=== PATIENT | male | born 1955 | race Caucasian/White ===

== ENCOUNTER → 2017-07-16 | Outpatient (CLI) | payer BC ==
[~2017-07-16] MED LIST: LOPRESSOR 225 MG/TAB PO; NEXIUM 40MG40 MG PO
== END ==
LOC: COL.VAS 08:34
DX: I10 Essential (primary) hypertension (principal)

== ENCOUNTER → 2020-06-25 | Outpatient (CLI) | payer BC | LOC: COL.RAD 08:15 | DX: R74.8 Abnormal levels of other serum enzymes (principal); K76.89 Other specified diseases of liver; N28.89 Other specified disorders of kidney and ureter; K83.8 Other specified diseases of biliary tract ==

== ENCOUNTER 2020-12-16 14:17 | Emergency (ER) | payer BC ==
[~2020-12-16] VITALS: Ht 182.9 cm; Wt 115.9 kg
[2020-12-16 14:24] VITALS: TEMP 98.9
[2020-12-16] MEDS ORDERED: LOTREL 10 MG-201 CAP PO (15:35)
[2020-12-16] MEDS ORDERED: PROTONIX 40MG T40 MG PO (15:35)
[2020-12-16] MEDS ORDERED: ALDACTONE50 MG PO (15:37)
[2020-12-16] MEDS ORDERED: PRINIVIL40 MG PO (15:37)
[2020-12-16 15:41] LABS: HEMATOCRIT 40.5 % (42.0-52.0); HEMOGLOBIN 13.4 g/dl (13.5-18.0); MEAN CELL VOLUME 97 fl (80.0-100.0); MEAN CORPUSCULAR HEMOGLOBIN 32 pg (27.0-31.0); MEAN CORPUSCULAR HGB CONC 33 g/dl (33.0-37.0); MEAN PLATELET VOLUME 10.4 fl (7.4-10.4); PLATELET COUNT 269 K/mm3 (130-400); RED BLOOD COUNT 4.17 M/mm3 (4.20-5.60); REDCELL DISTRIBUTION WIDTH-CV 13.3 % (11.5-14.5)
[2020-12-16 15:54] LABS: CALCIUM 9.6 mg/dL (8.4-10.2); CREATININE, serum 0.86 (0.66-1.25); POTASSIUM 4.8 mmol/L (3.4-5.0)
[2020-12-16 16:07] LABS: C-REACTIVE PROTEIN 17.7 mg/dL (0.0-0.9)
[2020-12-16 16:10] LABS: ERYTHROCYTE SEDIMENTATION RATE 40 mm/hr (0-30)
[2020-12-16 16:22] LABS: BAND 1 % (0-10); LYMPHOCYTE 9 % (20.0-51.0); NEUTROPHILS 76 % (42.0-75.2); PLATELET ESTIMATE NORMAL (NORMAL)
[2020-12-16 16:32] VITALS: BP 129/73; PULSE 70
== END 2020-12-16 16:35 | disposition home or self-care (01) ==
LOC: COL.ER 14:17
PROVIDERS: Emergency Medicine
DX: M25.462 Effusion, left knee (principal); F17.200 Nicotine dependence, unspecified, uncomplicated
CPT/HCPCS: J1885; J7030

== ENCOUNTER 2020-12-18 12:38 | Emergency (ER) | payer BC ==
[~2020-12-18] VITALS: Ht 182.9 cm; Wt 115.9 kg
[~2020-12-18 12:38] MED LIST changes: +ALDACTONE50 MG PO; +LOTREL 10 MG-201 CAP PO; +PRINIVIL40 MG PO; +PROTONIX 40MG T40 MG PO
[2020-12-18 12:46] VITALS: BP 113/75; TEMP 97.3
[2020-12-18 13:46] LABS: HEMATOCRIT 39.9 % (42.0-52.0); HEMOGLOBIN 13.1 g/dl (13.5-18.0); MEAN CELL VOLUME 98 fl (80.0-100.0); MEAN CORPUSCULAR HEMOGLOBIN 32 pg (27.0-31.0); MEAN CORPUSCULAR HGB CONC 33 g/dl (33.0-37.0); MEAN PLATELET VOLUME 10.1 fl (7.4-10.4); PLATELET COUNT 331 K/mm3 (130-400); RED BLOOD COUNT 4.08 M/mm3 (4.20-5.60); REDCELL DISTRIBUTION WIDTH-CV 13.2 % (11.5-14.5)
[2020-12-18 13:58] LABS: ALBUMIN 3.6 gm/dL (3.5-5.0); BILIRUBIN,TOTAL 0.9 mg/dL (0.0-1.0); CALCIUM 9.5 mg/dL (8.4-10.2); CREATININE, serum 0.74 (0.66-1.25); POTASSIUM 4.7 mmol/L (3.4-5.0); TOTAL PROTEIN 6.8 gm/dL (6.4-8.2)
[2020-12-18 14:09] LABS: C-REACTIVE PROTEIN 20.5 mg/dL (0.0-0.9)
[2020-12-18 14:22] LABS: BAND 1 % (0-10); LYMPHOCYTE 9 % (20.0-51.0); NEUTROPHILS 80 % (42.0-75.2)
[2020-12-18 14:23] LABS: HYPOCHROMIA 1+; PLATELET ESTIMATE NORMAL (NORMAL); STOMATOCYTE 1+
[2020-12-18 14:28] LABS: SYNOVIAL FLUID APPEARANCE TURBID; SYNOVIAL FLUID COLOR AMBER
[2020-12-18 14:30] LABS: SYNOVIAL FLUID WBC 23364 /mm3 (200-600)
[2020-12-18 14:31] LABS: SYNOVIAL FL. MONONUCLEAR 7.3 % (0-75); SYNOVIAL FLUID RBC 28000 /mm3 (0-0)
[2020-12-18] MEDS ORDERED: NORCO 325 MG-51 TAB PO (15:29)
[2020-12-18 16:02] VITALS: PULSE 85
== END 2020-12-18 16:02 | disposition home or self-care (01) ==
LOC: COL.ER 12:38
PROVIDERS: Family Medicine
DX: M25.462 Effusion, left knee (principal); I10 Essential (primary) hypertension

== ENCOUNTER 2020-12-20 09:21 | Inpatient (IN) | payer BC ==
[2020-12-20] VITALS (12 sets, daily range): BP systolic 107–157; BP diastolic 56–83; PULSE 69–94; TEMP 97.9–99.3
[~2020-12-20] VITALS: Ht 182.9 cm; Wt 110.0 kg
[~2020-12-20 09:21] MED LIST changes: +NORCO 325 MG-51 TAB PO
[2020-12-20] MEDS ORDERED: NORVASC 10MG10 MG PO (10:51)
--- NOTE | 2020-12-20 11:10 | NUR ---
Vancomycin Initial Dosing Pharmacy Note Ordering provider: Yair Oquendo MD Indication/duration: Infected L-knee LABS: SCr 0.74, CrCl>100, GFR 106 Recommendation: Vancomycin 2 gm IV x1 loading dose, then Vancomycin 1.75 gm IV 7q12h. Pharmacy will continue to monitor and check a Vancomycin trough on 12/22/20. Loading dose: 2 grams Maintenance dose: 1.75 grams every 12 hours Trough goal: 15-20 ug/mL
[2020-12-20 11:20] LABS: BASO % 0.3 % (0.0-2.0); EOS % 0.3 % (0-4.0); GRAN # 6.8 (1.4-6.5); GRAN % 77.2 % (42.2-75.2); HEMATOCRIT 40.1 % (42.0-52.0); LYMPH # 0.7 (1.2-3.4); LYMPH % 7.4 % (20.0-51.0); MEAN CELL VOLUME 97 fl (80.0-100.0); MEAN CORPUSCULAR HEMOGLOBIN 32 pg (27.0-31.0); MEAN CORPUSCULAR HGB CONC 32 g/dl (33.0-37.0); MEAN PLATELET VOLUME 9.9 fl (7.4-10.4); MONO # 1.2 (0.1-0.6); MONO % 13.7 % (1.7-9.3); PLATELET COUNT 392 K/mm3 (130-400); RED BLOOD COUNT 4.13 M/mm3 (4.20-5.60); REDCELL DISTRIBUTION WIDTH-CV 13.2 % (11.5-14.5)
[2020-12-20 11:30] LABS: CALCIUM 9.6 mg/dL (8.4-10.2); CREATININE, serum 0.67 (0.66-1.25); MAGNESIUM 2.4 mg/dL (1.6-2.3); POTASSIUM 4.2 mmol/L (3.4-5.0)
[2020-12-20 11:42] LABS: C-REACTIVE PROTEIN 23.5 mg/dL (0.0-0.9)
--- NOTE | 2020-12-20 12:00 | NUR ---
Contacted Dr. Adrian for consult.
[2020-12-20 12:50] LABS: ERYTHROCYTE SEDIMENTATION RATE 67 mm/hr (0-30)
--- NOTE | 2020-12-20 13:50 | NUR ---
Patient to OR by bed.
--- NOTE | 2020-12-20 17:27 | NUR ---
Patient called out requesting additional pain medicaion at this time. Patient unable to stay awake while staff in room. Patient on oxymask at 5L to maintain oxygen sats above 95%.
--- NOTE | 2020-12-20 18:14 | NUR ---
Patient doing well since up from OR. Alert and oriented at this time, patient eating supper. States pain to LLE 04/14, medications given at this time. Hemovac to LLE with serosanguinous drainage present. Patient has acewrap to LLE. Denies further needs at this time. Will report off to night club manager.
--- NOTE | 2020-12-20 19:30 | NUR ---
Patient assessed at this time. Alert and oriented x 4, and able to make needs known. Denies having pain and discomfort at this time. Patient had received PRN pain medication on previous shift which was effective. Double lumen PICC to RUE. NS running per orders. Site without redness, warmth, swelling, and drainage. Dressing CDI. Denies having SOB and dyspnea. LS CTA. Respirations even and unlabored. On oxygen at 3 L/min via NC. HRR. Telemetry in place: normal sinus. Capillary refill less than 3 seconds. Non-tenting skin turgor. BSAx4. Abdomen soft and non-tender. 2+ edema LLE. Hemovac drain to left knee with bloody output. Dressing to LLE in place: WILMER wrap to LLE. Did not remove dressing. Pedal pulses present and equal bilaterally. High fall risk precautions in place. Voices no questions, needs, or concerns at this time. Resting in bed with call light within reach.
[2020-12-21 03:54] VITALS: BP 152/75; PULSE 56; TEMP 97.6
--- NOTE | 2020-12-21 06:11 | NUR ---
Patient has been resting in bed with call light within reach. Has denied having pain and discomfort this shift. Hemovac drain emptied. 90 mls of bloody drainage. Continues on compression suction at this time. Denies having pain and discomfort to left knee. Continues on antibiotics per orders. This morning, patient complaining of irritation to right eye, with some redness noted. Flushed eye with normal saline flush as reqeusted. Requested to take off oxygen. SPO2 93% on room air. Agreed to leave off for now. Voices no further questions, needs, or concerns at this time. Resting in bed with call light within reach.
[2020-12-21 07:20] VITALS: BP 112/66; PULSE 74; TEMP 98.4
--- NOTE | 2020-12-21 08:00 | NUR ---
PATIENT IS A&O. VSS WITH TELE INPLACE. DENIES PAIN. LLE DRESSING IS CD&I WITH SPLINT AND ACEWRAP. ICE PACK TO LLE. SCD'S TO RLE. BLOOD CULTURES PENDING. IV ABX INFUSING INTO RIGHT UPPER ARM PICC. HEMOVAC TO COMPRESSION WITH SMALL AMOUNTS OF DRAINAGE. HEAD TO TOE ASSESSMENT COMPLETE. WBAT TO LLE. PT CONSULTED. NO C/O N/V. TOLERATING GEN DIET WELL. AM MEDS GIVEN
[2020-12-21 08:10] LABS: BASO % 0.2 % (0.0-2.0); GRAN # 8.4 (1.4-6.5); GRAN % 82.7 % (42.2-75.2); LYMPH # 0.6 (1.2-3.4); LYMPH % 5.9 % (20.0-51.0); MEAN CELL VOLUME 100 fl (80.0-100.0); MEAN CORPUSCULAR HGB CONC 32 g/dl (33.0-37.0); MEAN PLATELET VOLUME 10.1 fl (7.4-10.4); MONO % 10.2 % (1.7-9.3); PLATELET COUNT 349 K/mm3 (130-400); RED BLOOD COUNT 2.83 M/mm3 (4.20-5.60); REDCELL DISTRIBUTION WIDTH-CV 13.1 % (11.5-14.5)
[2020-12-21 08:17] LABS: HEMATOCRIT 28.3 % (42.0-52.0); HEMOGLOBIN 9.1 g/dl (13.5-18.0); MEAN CORPUSCULAR HEMOGLOBIN 32 pg (27.0-31.0)
[2020-12-21 08:29] LABS: CALCIUM 7.6 mg/dL (8.4-10.2); CREATININE, serum 0.58 (0.66-1.25); POTASSIUM 3.9 mmol/L (3.4-5.0)
[2020-12-21 11:19] VITALS: BP 123/62; PULSE 86; TEMP 98.7
--- NOTE | 2020-12-21 11:39 | NUR ---
Coal Conveyor Operator met with patient to discuss discharge planning. Patient lives alone in [place] and sees Dr. Herrera from [facility] for primary care. Patient obtains medications from [facility] with no difficulties. Patient does not normally use any DME at home but reports he does have an old walker at home and a pair of crutches. Patient is normally independent with ADLS and plans to return home upon discharge. Patient does not have DPOA-HC but was interested in completing form. SW assisted patient in completing form and patient chose to designate his son, Rosendo August (ph#[phone]) and sister in law, Lloyd August (ph#[phone]). SW provided original and copies to patient and then placed copy on chart. Patient will need six weeks of IV antibiotics upon discharge and the team is still waiting on results from cultures to determine what patient will need and how often. SW reviewed options with patient including [facility] in [place], [facility], or home IV antibiotics. Patient states he would prefer not to do antibiotics at home as he wasn't sure if he would be very consistent with it. Patient would like to [facility] up at [facility]. SW contacted Christin in [facility] to give update on patient. SW then contacted patient's sister in law, Lloyd to review discharge plan. Lloyd advised patient works in [place] and that she should be able to assist with transportation if for some reason patient is unable to drive himself at first. SW will continue to follow for final recommendations.
[2020-12-21 16:10] VITALS: BP 141/72; PULSE 88; TEMP 97.6
[2020-12-21 17:58] LABS: HEMOGLOBIN 9.1 g/dl (13.5-18.0)
[2020-12-21 17:59] LABS: HEMATOCRIT 28.3 % (42.0-52.0)
[2020-12-21 19:52] VITALS: BP 136/55; PULSE 88; TEMP 98.4
--- NOTE | 2020-12-21 20:15 | NUR ---
Patient assessed at this time. Alert and oriented x 4, and able to make needs known. Denies having pain and discomfort. Double lumen PICC to RUE. Fluids running per orders. Site without redness, warmth, swelling, and pain. Dressing CDI. Denies SOB and dyspnea. LS CTA. Respirations even and unlabored. On room air. HRR. Telemetry in place. Capillary refill less than 3 seconds. Non-tenting skin turgor. BSAx4. Abdomen soft and non-tender. 2+ edema LLE, 1+ RLE. WILMER dressing to LLE CDI. Hemovac drain to left knee to compression with bloody drainage. Patient aware that he is NPO after midnight for possible washout again tomorrow to left knee. Voices no questions, needs, or concerns at this time. Resting in bed with call light within reach.
[2020-12-22 00:25] VITALS: BP 142/65; PULSE 90; TEMP 97.7
[2020-12-22 04:18] VITALS: BP 130/68; PULSE 84; TEMP 97.6
--- NOTE | 2020-12-22 06:01 | NUR ---
Patient has been resting in bed with call light within reach. Has denied having pain and discomfort. 40 ml bloody drainage from hemovac drain to left knee emptied. Continues on compression suction. Patient has been NPO since midnight per orders. High fall risk precautions remain in place. Has been using bedside urinal.
[2020-12-22 06:32] LABS: MEAN CELL VOLUME 100 fl (80.0-100.0); MEAN CORPUSCULAR HGB CONC 32 g/dl (33.0-37.0); MEAN PLATELET VOLUME 10.1 fl (7.4-10.4); PLATELET COUNT 351 K/mm3 (130-400); RED BLOOD COUNT 3.02 M/mm3 (4.20-5.60); REDCELL DISTRIBUTION WIDTH-CV 13.1 % (11.5-14.5)
[2020-12-22 06:43] LABS: HEMATOCRIT 30.1 % (42.0-52.0); HEMOGLOBIN 9.5 g/dl (13.5-18.0); MEAN CORPUSCULAR HEMOGLOBIN 31 pg (27.0-31.0)
[2020-12-22 06:44] LABS: C-REACTIVE PROTEIN 7.9 mg/dL (0.0-0.9); CALCIUM 8.5 mg/dL (8.4-10.2); CREATININE, serum 0.65 (0.66-1.25); POTASSIUM 3.8 mmol/L (3.4-5.0)
[2020-12-22 07:00] LABS: BAND 1 % (0-10); BASOPHIL 1 % (0-2); EOSINOPHIL 1 % (0-4); HYPOCHROMIA 2+; LYMPHOCYTE 18 % (20.0-51.0); NEUTROPHILS 65 % (42.0-75.2); PLATELET ESTIMATE NORMAL (NORMAL)
[2020-12-22 07:59] VITALS: BP 167/85; PULSE 86; TEMP 97.5
--- NOTE | 2020-12-22 08:02 | NUR ---
Pt assessment complete. Pt is laying in bed upon entry, assisted the PA in removal of drain and dressing change. Ice reapplied to L knee. POC to stay another night discussed with patient. Pt able to eat breakfast this am. Encouraged to get into the recliner for breakfast. IVF infusing without complications. No needs at this time. Call light within reach.
--- NOTE | 2020-12-22 10:35 | NUR ---
Initial visit; Patient thanked Edge Stainer Machine for looking in on him and offering God's blessings.
[2020-12-22 10:59] VITALS: BP 135/70; PULSE 86; TEMP 98.6
[2020-12-22 16:00] VITALS: BP 161/80; PULSE 80; TEMP 98.1
--- NOTE | 2020-12-22 18:37 | NUR ---
Uneventful day, PRN pain medication and ice administered for knee pain. Dressing CDI, encouraged patient to ambulate and move leg.
[2020-12-22 19:59] VITALS: BP 144/74; PULSE 84; TEMP 97.6
[2020-12-23 00:37] VITALS: BP 160/85; PULSE 86; TEMP 98
[2020-12-23 04:00] VITALS: BP 163/84; PULSE 90; TEMP 97.8
--- NOTE | 2020-12-23 05:15 | NUR ---
Patient did well throughout the night. Dressing on his left knee clean, dry, and intact. Fluids infusing through PICC in right upper arm. [place] PRN for pain. He has been NPO since midnight for possible I&D today. No other needs at this time.
[2020-12-23 07:12] LABS: HEMOGLOBIN 10.1 g/dl (13.5-18.0); MEAN CELL VOLUME 99 fl (80.0-100.0); MEAN CORPUSCULAR HEMOGLOBIN 32 pg (27.0-31.0); MEAN CORPUSCULAR HGB CONC 32 g/dl (33.0-37.0); MEAN PLATELET VOLUME 10.1 fl (7.4-10.4); PLATELET COUNT 414 K/mm3 (130-400); RED BLOOD COUNT 3.19 M/mm3 (4.20-5.60); REDCELL DISTRIBUTION WIDTH-CV 13.1 % (11.5-14.5)
[2020-12-23 07:27] LABS: CREATININE, serum 0.64 (0.66-1.25); POTASSIUM 3.9 mmol/L (3.4-5.0)
[2020-12-23 07:31] LABS: HEMATOCRIT 31.7 % (42.0-52.0)
--- NOTE | 2020-12-23 08:00 | NUR ---
PATIENT IS A&O. VSS WITH TELE INPLACE. PAIN MANAGED IN LEFT KNEE. LEFT KNEE DRESSING IS CD&I WITH ICE PACK INPLACE. PATIENT IS 1 ASSIST WITH WALKER. PATIENT HOPING TO DISCHARGE HOME LATER TODAY. AWAITING ANTIBIOTIC RECOMMENDATIONS. PATIENT STILL DECIDING ON WHERE TO GET OUTPATIENT ABX. STUDENT NURSE WORKING WITH PATIENT TODAY, SEE CHARTING. NO OTHER NEEDS. CALL LIGHT IN REACH.
[2020-12-23 08:01] VITALS: BP 154/96; PULSE 81; TEMP 98
--- NOTE | 2020-12-23 09:00 | NUR ---
HOSPITALIST TEAM ROUNDING. PATIENT WILL LIKELY DISCHARGE HOME TODAY AFTER I.D. MAKES ABX RECOMMENDATIONS. SEE PHYSICIAN NOTES.
--- NOTE | 2020-12-23 09:35 | NUR ---
PATIENT'S DAUGHTER AND DPOA CALLED AND GIVEN PATIENT STATUS UPDATE. DAUGHTER CONTACT INFO ON CHART. PATIENT SITTING UP IN BED, DOING WELL, NO C/O PAIN. STUDENT NURSE AT BEDSIDE, SEE STUDENT CHARTING.
[2020-12-23 13:00] VITALS: BP 149/71; PULSE 90; TEMP 98
[2020-12-23] MEDS ORDERED: ROCEPHIN 2GM VIAL21 IJ (14:50)
--- NOTE | 2020-12-23 15:31 | NUR ---
DC met with the patient to review d/c plan of IV antibiotics in the [facility]. The patient states that he does not think that he will have reliable transportation to the [facility] or [facility] to get them done as outpatient. DC discussed the option of IV antibiotics in the home, but how the patient or family/friend would need to be teachable to be able to administer the med. The patient states that he would prefer to do the IV antibiotics at home and that his gmmtdy-oo-arx, Lloyd, would be able to help. The ID doctor then submitted his preference for antibiotic. IV Rocephin, once a day for six weeks. DC met with the patient to inform and Lloyd was on speaker phone. Lloyd confirms that she will help the patient with the antibiotics. The patient was agreeable to using [facility] and getting home health set up. DC contacted and faxed the patient's records and the script for the Rocephin to Claudia at [facility]. Claudai reports that she can come out tomorrow morning to provide some education to the patient. DC informed the patient and Lloyd of this. Lloyd plans to come up to the hospital to attend the education. DC contacted and faxed a referral to Mounika at [facility]. Awaiting screen and approval of IV antibiotic.
[2020-12-23 16:06] VITALS: BP 144/75; PULSE 88; TEMP 98.1
[2020-12-23 19:40] VITALS: BP 153/81; PULSE 95; TEMP 98
--- NOTE | 2020-12-23 19:40 | NUR ---
Patient assessed at this time. Alert and oriented x 4, and able to make needs known. Reported level 4 pain to left knee. Given PRN [place] for pain, as well as an ice pack to area. Double lumen PICC to RUE. Dressing CDI. Denies having SOB and dyspnea. LS CTA. Respirations even and unlabored. HRR. Telemetry in place. Capillary refill less than 3 seconds. Non-tenting skin turgor. BSAx4. [place]omen soft and non-tender. Using bedside urinal. 2+ edema LLE. Dressing to left knee. Bloody drainage noted to outside of WILMER wrap, dried. Patient stated that it had been there for a while. Marked edges to watch for any increase in bleeding. Voices no questions, needs, or concerns at this time. Resting in bed with call light within reach.
--- NOTE | 2020-12-23 23:45 | NUR ---
Patient given PRN [place] for pain at this time.
[2020-12-24 00:01] VITALS: BP 152/87; PULSE 83; TEMP 98.1
--- NOTE | 2020-12-24 03:05 | NUR ---
Patient complaining of level 6 pain to left knee. Given PRN Roxicodone as requested for pain at this time.
[2020-12-24 03:43] VITALS: BP 147/88; PULSE 79; TEMP 97.8
--- NOTE | 2020-12-24 04:12 | NUR ---
Patient continuing to have level 5 pain to left knee. Given PRN Roxicodone 5 mg at this time to equal 10 mg total given.
--- NOTE | 2020-12-24 05:53 | NUR ---
Patient has had increased pain this shift. Received PRN pain medication as requested. No increase in drainage from dressing to left knee. Ice to knee to help with pain as well this shift. Voices no further questions, needs, or concerns at this time. Resting in bed with call light within reach.
[2020-12-24 07:33] VITALS: BP 154/75; PULSE 89; TEMP 97.9
--- NOTE | 2020-12-24 10:29 | NUR ---
Koko, with [facility], contacted DC. Claudia reports that with it being so late in the day yesterday, [facility] was already closed and not able to run the patient's benefits. She states that she should get an answer today and that they would then be able to deliver the antibiotics and supplies to the patient's home tonight. Claudia reports that she will be up to the hospital after lunch to provide education. DC met with the patient and his [id number] to update. DC updated Mounika at [facility].
[2020-12-24 12:14] VITALS: BP 134/65; PULSE 94; TEMP 97.7
--- NOTE | 2020-12-24 13:35 | NUR ---
PATIENTS LEFT KNEE DRESSING REMOVED. MODERATE AMOUNT OF BLOODY DRAINAGE PRESENT TO THE PROXIMAL LATERAL INCISION SITE. SUTURES INTACT TO 3 INCISION SITES. SITES COVERED WITH 2X2 GAUZE & TEGADERM DRESSINGS. LEFT KNEE WRAPPED IN WILMER WRAP PER PATIENT REQUEST. PATIENT TOLERATED WELL.
--- NOTE | 2020-12-24 13:37 | NUR ---
DC received a voicemail from Koko. Koko reports that the patient has not met his out of pocket costs yet, but that his hospital stay will likely take care of that. They will not bill the patient directly. Rudymesfin arrived to the hospital and provided education to the patient and his vfbuwp-qg-yma, Lloyd. Koko reports that they are able to fill the patient's IV antibiotic prescription and the med will be delivered to his home address [address]. DC updated the clinical team. DC updated Mounika at [facility]. Mounika reports that they are able to accept the patient for services. DC met with the patient and Lloyd to update. The patient is interested in getting a FWW from [facility] and Lloyd reports that they can pick it up from [facility] when they leave the hospital. DC contacted and faxed the FWW order to Patti at [facility]. Erik and Lloyd had no other questions for DC. The patient is to discharge back home today, 12/24, with IV antibiotics from [facility] and home health services for fdc/PT/OT through [facility]. DC notified and faxed d/c orders to Mounika at [facility]. Mounika plans on contacting the patient's [id number] to set up a time to start services. DC informed Lloyd of this. No additional needs at this time.
--- NOTE | 2020-12-24 15:10 | NUR ---
DISCHARGE INSTRUCTIONS REVIEWED WITH PATIENT AND FAMILY. QUESTIONS SOUGHT AND ANSWERED. PATIENT PERSONAL BELONGINGS GATHERED.
--- NOTE | 2020-12-24 15:32 | NUR ---
PATIENT TAKEN TO PERSONAL VEHICLE VIA WHEELCHAIR BY SURGICAL STAFF. PATIENT DISCHARGED.
== END 2020-12-24 15:30 | disposition home health service (06) | DRG 487 ==
LOC: SURG 09:21
PROVIDERS: Orthopaedic Surgery; Physician Assistant; ADMIT Internal Medicine
PROC: 3E1U48X Irrigation of Joints using Irrigating Substance, Percutaneous Endoscopic Approach, Diagnostic (ICD-10-PCS; 2020-12-20)
PROC: 02HV33Z Insertion of Infusion Device into Superior Vena Cava, Percutaneous Approach (ICD-10-PCS; 2020-12-20)
PROC: 0SBD0ZZ Excision of Left Knee Joint, Open Approach (ICD-10-PCS; principal; 2020-12-20 14:30)
DX: M00.862 Arthritis due to other bacteria, left knee (principal); M13.862 Other specified arthritis, left knee; I10 Essential (primary) hypertension; K21.9 Gastro-esophageal reflux disease without esophagitis; Z20.822 Contact with and (suspected) exposure to COVID-19; D64.9 Anemia, unspecified
CPT/HCPCS: 99223-AI; 99232-AI; 99239; A9284; C1751; J0690; J0692; J0696; J1100; J1885; J2250; J2405; J2704; J3010; J3370; J7030; J7040; J7121

== ENCOUNTER → 2020-12-30 | Outpatient (CLI) | payer BC ==
[~2020-12-30] MED LIST changes: +LOPRESSOR100 MG PO; +NORVASC 10MG10 MG PO; +ROCEPHIN 2GM VIAL21 IJ; +ULTRAM 50MG TAB50 MG PO
[2020-12-30 13:18] LABS: BASO % 0.4 % (0.0-2.0); EOS # 0.2 (0.0-0.7); EOS % 1.9 % (0-4.0); GRAN # 6.3 (1.4-6.5); GRAN % 68.6 % (42.2-75.2); LYMPH # 1.3 (1.2-3.4); LYMPH % 14.5 % (20.0-51.0); MEAN CELL VOLUME 96 fl (80.0-100.0); MEAN CORPUSCULAR HGB CONC 33 g/dl (33.0-37.0); MEAN PLATELET VOLUME 9.4 fl (7.4-10.4); MONO # 1.2 (0.1-0.6); MONO % 13.2 % (1.7-9.3); PLATELET COUNT 593 K/mm3 (130-400); RED BLOOD COUNT 3.17 M/mm3 (4.20-5.60); REDCELL DISTRIBUTION WIDTH-CV 13.2 % (11.5-14.5)
[2020-12-30 13:22] LABS: HEMATOCRIT 30.4 % (42.0-52.0); HEMOGLOBIN 9.9 g/dl (13.5-18.0); MEAN CORPUSCULAR HEMOGLOBIN 31 pg (27.0-31.0)
[2020-12-30 14:04] LABS: ERYTHROCYTE SEDIMENTATION RATE 80 mm/hr (0-30)
== END ==
LOC: COL.LAB 12:54
PROVIDERS: Orthopaedic Surgery
DX: M25.562 Pain in left knee (principal); Z98.890 Other specified postprocedural states

== ENCOUNTER → 2021-01-03 | Outpatient (CLI) | payer BC ==
[2021-01-03 08:41] LABS: HEMOGLOBIN 10.5 g/dl (13.5-18.0); MEAN CELL VOLUME 96 fl (80.0-100.0); MEAN CORPUSCULAR HEMOGLOBIN 31 pg (27.0-31.0); MEAN CORPUSCULAR HGB CONC 32 g/dl (33.0-37.0); MEAN PLATELET VOLUME 9.1 fl (7.4-10.4); PLATELET COUNT 503 K/mm3 (130-400); REDCELL DISTRIBUTION WIDTH-CV 13.2 % (11.5-14.5)
[2021-01-03 08:45] LABS: HEMATOCRIT 32.5 % (42.0-52.0)
[2021-01-03 09:13] LABS: ERYTHROCYTE SEDIMENTATION RATE 37 mm/hr (0-30)
== END ==
LOC: COL.LAB 07:57
PROVIDERS: Orthopaedic Surgery
DX: M25.562 Pain in left knee (principal)

== ENCOUNTER 2021-02-04 13:00 | Outpatient (RCR) | payer BC ==
[2021-01-11 09:28] VITALS: BP 129/77; PULSE 53; TEMP 98.3
--- NOTE | 2021-01-11 09:45 | NUR ---
Here for cares. PICC intact right upper arm with no disk present. PICC sterile dressing change done with insertion site cleansed with chloraprep x 1, chlorhexidine impregnated disk applied, skin prep, stat lock, and tegaderm applied. no signs or symptoms of IV complications noted. no concerns voiced. to return next week for cares. voiced understanding of instructions.
[2021-01-11 10:02] LABS: BASO # 0.1 (0.0-0.2); BASO % 0.9 % (0.0-2.0); EOS # 0.4 (0.0-0.7); EOS % 5.3 % (0-4.0); GRAN # 4.2 (1.4-6.5); HEMOGLOBIN 10.3 g/dl (13.5-18.0); LYMPH # 1.2 (1.2-3.4); LYMPH % 18.8 % (20.0-51.0); MEAN CELL VOLUME 97 fl (80.0-100.0); MEAN CORPUSCULAR HEMOGLOBIN 31 pg (27.0-31.0); MEAN CORPUSCULAR HGB CONC 32 g/dl (33.0-37.0); MEAN PLATELET VOLUME 9.7 fl (7.4-10.4); MONO # 0.7 (0.1-0.6); MONO % 10.5 % (1.7-9.3); PLATELET COUNT 328 K/mm3 (130-400); RED BLOOD COUNT 3.33 M/mm3 (4.20-5.60); REDCELL DISTRIBUTION WIDTH-CV 13.6 % (11.5-14.5)
[2021-01-11 10:04] LABS: HEMATOCRIT 32.4 % (42.0-52.0)
[2021-01-11 10:13] LABS: ALBUMIN 3.6 gm/dL (3.5-5.0); BILIRUBIN,TOTAL 0.6 mg/dL (0.0-1.0); C-REACTIVE PROTEIN 3.2 mg/dL (0.0-0.9); CALCIUM 9.7 mg/dL (8.4-10.2); CREATININE, serum 0.68 (0.66-1.25); POTASSIUM 4.3 mmol/L (3.4-5.0); TOTAL PROTEIN 6.5 gm/dL (6.4-8.2)
[2021-01-11 10:28] LABS: ERYTHROCYTE SEDIMENTATION RATE 27 mm/hr (0-30)
[2021-01-18 09:31] LABS: BASO # 0.1 (0.0-0.2); BASO % 0.9 % (0.0-2.0); EOS # 0.4 (0.0-0.7); EOS % 6.9 % (0-4.0); GRAN % 56.1 % (42.2-75.2); HEMOGLOBIN 10.6 g/dl (13.5-18.0); LYMPH # 1.3 (1.2-3.4); LYMPH % 23.6 % (20.0-51.0); MEAN CELL VOLUME 96 fl (80.0-100.0); MEAN CORPUSCULAR HEMOGLOBIN 30 pg (27.0-31.0); MEAN CORPUSCULAR HGB CONC 32 g/dl (33.0-37.0); MONO # 0.7 (0.1-0.6); MONO % 12.1 % (1.7-9.3); PLATELET COUNT 329 K/mm3 (130-400)
[2021-01-18 09:34] LABS: HEMATOCRIT 33.5 % (42.0-52.0)
[2021-01-18 09:35] VITALS: BP 124/72; PULSE 56; TEMP 98.5
[2021-01-18 09:44] LABS: ALBUMIN 3.9 gm/dL (3.5-5.0); BILIRUBIN,TOTAL 0.4 mg/dL (0.0-1.0); C-REACTIVE PROTEIN 2.8 mg/dL (0.0-0.9); CALCIUM 9.8 mg/dL (8.4-10.2); CREATININE, serum 0.75 (0.66-1.25); POTASSIUM 4.4 mmol/L (3.4-5.0); TOTAL PROTEIN 6.6 gm/dL (6.4-8.2)
[2021-01-18 10:12] LABS: ERYTHROCYTE SEDIMENTATION RATE 20 mm/hr (0-30)
[2021-01-25 09:19] LABS: BASO # 0.1 (0.0-0.2); BASO % 0.9 % (0.0-2.0); EOS # 0.3 (0.0-0.7); EOS % 5.9 % (0-4.0); GRAN # 3.1 (1.4-6.5); GRAN % 54.7 % (42.2-75.2); HEMOGLOBIN 10.4 g/dl (13.5-18.0); LYMPH # 1.5 (1.2-3.4); LYMPH % 25.9 % (20.0-51.0); MEAN CELL VOLUME 94 fl (80.0-100.0); MEAN CORPUSCULAR HEMOGLOBIN 30 pg (27.0-31.0); MEAN CORPUSCULAR HGB CONC 32 g/dl (33.0-37.0); MONO # 0.7 (0.1-0.6); MONO % 12.2 % (1.7-9.3); PLATELET COUNT 277 K/mm3 (130-400); RED BLOOD COUNT 3.49 M/mm3 (4.20-5.60); REDCELL DISTRIBUTION WIDTH-CV 14.2 % (11.5-14.5)
[2021-01-25 09:21] LABS: HEMATOCRIT 32.7 % (42.0-52.0)
[2021-01-25 09:23] VITALS: BP 114/80; PULSE 51; TEMP 98.3
[2021-01-25 09:31] LABS: ALBUMIN 3.7 gm/dL (3.5-5.0); BILIRUBIN,TOTAL 0.3 mg/dL (0.0-1.0); C-REACTIVE PROTEIN 3.5 mg/dL (0.0-0.9); CALCIUM 9.5 mg/dL (8.4-10.2); CREATININE, serum 0.72 (0.66-1.25); POTASSIUM 4.2 mmol/L (3.4-5.0); TOTAL PROTEIN 6.6 gm/dL (6.4-8.2)
[2021-01-25 09:59] LABS: ERYTHROCYTE SEDIMENTATION RATE 20 mm/hr (0-30)
[2021-02-01 09:06] VITALS: BP 124/69; PULSE 52; TEMP 98.1
[2021-02-01 09:14] LABS: BASO # 0.1 (0.0-0.2); BASO % 0.9 % (0.0-2.0); EOS # 0.3 (0.0-0.7); EOS % 4.5 % (0-4.0); GRAN # 3.9 (1.4-6.5); GRAN % 60.4 % (42.2-75.2); HEMATOCRIT 35.3 % (42.0-52.0); HEMOGLOBIN 11.1 g/dl (13.5-18.0); LYMPH # 1.4 (1.2-3.4); LYMPH % 22.3 % (20.0-51.0); MEAN CELL VOLUME 93 fl (80.0-100.0); MEAN CORPUSCULAR HEMOGLOBIN 29 pg (27.0-31.0); MEAN CORPUSCULAR HGB CONC 31 g/dl (33.0-37.0); MEAN PLATELET VOLUME 10.3 fl (7.4-10.4); MONO # 0.8 (0.1-0.6); MONO % 11.6 % (1.7-9.3); PLATELET COUNT 312 K/mm3 (130-400); REDCELL DISTRIBUTION WIDTH-CV 14.1 % (11.5-14.5)
[2021-02-01 09:30] LABS: ALBUMIN 3.9 gm/dL (3.5-5.0); BILIRUBIN,TOTAL 0.5 mg/dL (0.0-1.0); C-REACTIVE PROTEIN 2.1 mg/dL (0.0-0.9); CALCIUM 9.8 mg/dL (8.4-10.2); CREATININE, serum 0.75 (0.66-1.25); POTASSIUM 4.2 mmol/L (3.4-5.0)
[2021-02-01 09:33] LABS: ERYTHROCYTE SEDIMENTATION RATE 19 mm/hr (0-30)
[~2021-02-04] VITALS: Ht 182.9 cm; Wt 111.7 kg
[2021-02-04 12:56] VITALS: BP 125/68; PULSE 83; TEMP 98.1
--- NOTE | 2021-02-04 13:45 | NUR ---
Pt remained flat for 30 mins following PICC removal. Dressing remains clean, dry and intact. Pt free of complaints. He ambulates out from dept with walker.
== END 2021-02-04 15:06 | disposition still patient (30) ==
LOC: EUO 13:00
PROVIDERS: Internal Medicine Infectious Disease
DX: M01.X0 Direct infection of unspecified joint in infectious and parasitic diseases classified elsewhere (principal); Z95.9 Presence of cardiac and vascular implant and graft, unspecified

== ENCOUNTER → 2021-03-03 | Outpatient (CLI) | payer BC ==
[2021-03-03 08:43] LABS: BILIRUBIN,TOTAL 0.3 mg/dL (0.0-1.0); CALCIUM 9.4 mg/dL (8.4-10.2); CREATININE, serum 0.83 (0.66-1.25); POTASSIUM 4.9 mmol/L (3.4-5.0); TOTAL PROTEIN 6.9 gm/dL (6.4-8.2)
== END ==
LOC: COL.LAB 07:50
PROVIDERS: Internal Medicine Infectious Disease
DX: M01.X0 Direct infection of unspecified joint in infectious and parasitic diseases classified elsewhere (principal)

== ENCOUNTER → 2021-03-09 | Outpatient (CLI) | payer BC ==
[2021-03-09 10:26] LABS: BASO # 0.1 (0.0-0.2); BASO % 0.6 % (0.0-2.0); EOS # 0.3 (0.0-0.7); EOS % 3.6 % (0-4.0); GRAN # 5.4 (1.4-6.5); HEMATOCRIT 39.7 % (42.0-52.0); HEMOGLOBIN 12.7 g/dl (13.5-18.0); LYMPH # 1.8 (1.2-3.4); LYMPH % 20.8 % (20.0-51.0); MEAN CELL VOLUME 91 fl (80.0-100.0); MEAN CORPUSCULAR HEMOGLOBIN 29 pg (27.0-31.0); MEAN CORPUSCULAR HGB CONC 32 g/dl (33.0-37.0); MEAN PLATELET VOLUME 10.6 fl (7.4-10.4); MONO % 11.5 % (1.7-9.3); PLATELET COUNT 288 K/mm3 (130-400); RED BLOOD COUNT 4.37 M/mm3 (4.20-5.60)
[2021-03-09 10:47] LABS: ERYTHROCYTE SEDIMENTATION RATE 11 mm/hr (0-30)
== END ==
LOC: COL.LAB 09:19
DX: B99.9 Unspecified infectious disease (principal)

== ENCOUNTER → 2021-04-11 | Outpatient (CLI) | payer BC | LOC: ZCOL.LAB 16:08 | DX: B99.9 Unspecified infectious disease (principal) ==

== ENCOUNTER → 2021-04-18 | Outpatient (CLI) | payer BC ==
[2021-04-18 13:37] LABS: BASO # 0.1 (0.0-0.2); BASO % 0.7 % (0.0-2.0); EOS # 0.2 (0.0-0.7); EOS % 2.6 % (0-4.0); GRAN # 5.2 (1.4-6.5); GRAN % 63.2 % (42.2-75.2); HEMATOCRIT 43.3 % (42.0-52.0); LYMPH # 1.8 (1.2-3.4); LYMPH % 21.6 % (20.0-51.0); MEAN CELL VOLUME 91 fl (80.0-100.0); MEAN CORPUSCULAR HEMOGLOBIN 29 pg (27.0-31.0); MEAN CORPUSCULAR HGB CONC 32 g/dl (33.0-37.0); MEAN PLATELET VOLUME 10.5 fl (7.4-10.4); MONO # 0.9 (0.1-0.6); MONO % 11.4 % (1.7-9.3); PLATELET COUNT 234 K/mm3 (130-400); RED BLOOD COUNT 4.76 M/mm3 (4.20-5.60); REDCELL DISTRIBUTION WIDTH-CV 17.1 % (11.5-14.5)
[2021-04-18 13:44] LABS: ALBUMIN 4.2 gm/dL (3.5-5.0); BILIRUBIN,TOTAL 0.3 mg/dL (0.0-1.0); C-REACTIVE PROTEIN 0.8 mg/dL (0.0-0.9); CALCIUM 9.8 mg/dL (8.4-10.2); CREATININE, serum 0.76 (0.66-1.25); POTASSIUM 3.9 mmol/L (3.4-5.0); TOTAL PROTEIN 7.1 gm/dL (6.4-8.2)
[2021-04-18 14:33] LABS: ERYTHROCYTE SEDIMENTATION RATE 1 mm/hr (0-30)
== END ==
LOC: COL.LAB 12:59
PROVIDERS: Internal Medicine Infectious Disease
DX: B99.9 Unspecified infectious disease (principal)

== ENCOUNTER → 2021-05-25 | Outpatient (CLI) | payer BC ==
[2021-05-25 13:30] LABS: BASO % 0.5 % (0.0-2.0); EOS # 0.2 (0.0-0.7); EOS % 1.9 % (0-4.0); GRAN # 5.3 (1.4-6.5); HEMATOCRIT 45.9 % (42.0-52.0); HEMOGLOBIN 14.7 g/dl (13.5-18.0); LYMPH # 1.5 (1.2-3.4); LYMPH % 18.8 % (20.0-51.0); MEAN CELL VOLUME 94 fl (80.0-100.0); MEAN CORPUSCULAR HEMOGLOBIN 30 pg (27.0-31.0); MEAN CORPUSCULAR HGB CONC 32 g/dl (33.0-37.0); MONO % 12.4 % (1.7-9.3); PLATELET COUNT 209 K/mm3 (130-400); REDCELL DISTRIBUTION WIDTH-CV 16.4 % (11.5-14.5)
[2021-05-25 13:45] LABS: ALBUMIN 4.3 gm/dL (3.5-5.0); BILIRUBIN,TOTAL 0.4 mg/dL (0.0-1.0); C-REACTIVE PROTEIN 1.1 mg/dL (0.0-0.9); CALCIUM 9.8 mg/dL (8.4-10.2); CREATININE, serum 0.76 (0.66-1.25); POTASSIUM 4.2 mmol/L (3.4-5.0); TOTAL PROTEIN 7.4 gm/dL (6.4-8.2)
[2021-05-25 13:52] LABS: ERYTHROCYTE SEDIMENTATION RATE 1 mm/hr (0-30)
== END ==
LOC: COL.LAB 11:44
PROVIDERS: Internal Medicine Infectious Disease
DX: M01.X0 Direct infection of unspecified joint in infectious and parasitic diseases classified elsewhere (principal)